=== PATIENT | female | born 1995 | race Caucasian/White ===

== ENCOUNTER 2016-04-02 10:14 | Emergency (ER) | payer OTHER ==
[2016-04-02] MEDS ORDERED: MORPHINE 4 MG/ML SYR ONE (11:14)
== END 2016-04-02 14:29 | disposition home or self-care (01) ==
LOC: ER 10:14
DX: O03.4 Incomplete spontaneous abortion without complication (principal)
CPT/HCPCS: 36415; 76817; 80053; 83690; 84702; 85025; 85610; 85730; 86901; 87491; 87591; 87800; 96374